=== PATIENT | male | born 1945 | race Caucasian/White ===

== ENCOUNTER 2021-11-02 10:39 | Emergency (ER) | payer OTHER, BC ==
[2021-11-02 10:55] VITALS: BMI 23.7
[2021-11-02] MEDS ORDERED: SOTROVIMAB 500 MG in SODIUM CHLORIDE 100 ML IVPB ONE (11:14)
[2021-11-02 12:23] VITALS: PULSE 71
[2021-11-02 13:47] VITALS: BP 119/78; TEMP 98.2
== END 2021-11-02 14:05 | disposition home or self-care (01) ==
LOC: JCOVINFU 10:39
DX: U07.1 COVID-19 (principal)
CPT/HCPCS: 99284-25; M0247